=== PATIENT | male | born 1990 | race Hispanic/Latino ===

== ENCOUNTER 2021-05-30 17:24 | Emergency (ER) | payer SELFPAY ==
[2021-05-30] MEDS ORDERED: Lorazepam 1 MG TAB ONE (18:02)
[2021-05-30] MEDS ORDERED: Lidocaine 1% (PF) 30 ML VIAL ONE (18:03)
== END 2021-05-30 18:52 | disposition home or self-care (01) ==
LOC: CSHERS 17:24
DX: L02.211 Cutaneous abscess of abdominal wall (principal); L03.311 Cellulitis of abdominal wall
CPT/HCPCS: 10060; J2001